=== PATIENT | male | born 1995 | race Hispanic/Latino ===

== ENCOUNTER → 2021-07-16 | Emergency (ER) | payer OTHER ==
[~2021-07-16] VITALS: Ht 167.6 cm; Wt 90.7 kg
[~2021-07-16] MED LIST: ACETAMINOPHEN650 M1 PO; ADDERALL XR 3030 MG PO; KETOROLAC TROMETHAMINE 30 MG/ML VIAL IM STA; TRIAZOLAM0.25 MG PO; XANAX1 MG PO
== END | disposition home or self-care (01) ==
LOC: ER 11:00
DX: S20.219A Contusion of unspecified front wall of thorax, initial encounter (principal); V43.52XA Car driver injured in collision with other type car in traffic accident, initial encounter; Y92.488 Other paved roadways as the place of occurrence of the external cause; F41.9 Anxiety disorder, unspecified; F90.9 Attention-deficit hyperactivity disorder, unspecified type
CPT/HCPCS: 71046; 93005; 99282; J1885